=== PATIENT | female | born 1970 | race Caucasian/White ===

== ENCOUNTER → 2017-11-12 13:50 | Outpatient (CLI) | payer OTHER, SELFPAY ==
[2017-11-12 16:46] LABS: Absolute Lymphocyte Count 2.61 X10^3/ul (0.83-4.51); Absolute Neutrophil Count 4.8 X10^3/uL (2.0-7.7); Basophil# 0.03 X10^3/uL; Basophil% 0.4 % (0-1); Eosinophil# 0.09 X10^3/uL; Eosinophils% 1.1 % (0-5); Hematocrit 38.7 % (37-47); Lymphocyte # 2.61 X10^3/ul (4.0); Lymphocyte % 31.5 % (19-41); Mean Corpuscular Hgb 25.3 pg (27.0-32.0); Mean Corpuscular Volume 81.5 fL (81-99); Mean Platelet Vol. 10.6 fl (6.2-12.0); Monocyte# 0.71 X10^3/uL; Monocyte% 8.6 % (0-10); Neutrophil # 4.84 X10^3/uL (2.7-7.7); Neutrophil % 58.3 % (47-70); Platelet Count 253 K/mm3 (150-450); RBC Distribution Width CV 16.8 % (11.6-14.6); RBC Distribution Width SD 50.6 fl (35.1-43.9); Red Blood Count 4.75 M/mm3 (4.2-5.4); White Blood Count 8.3 K/mm3 (4.4-11.0)
[2017-11-12 16:50] LABS: POSITIVE COUNT NO; POSITIVE DIFFERENTIAL NO; POSITIVE MORPHOLOGY NO
[2017-11-12 17:22] LABS: ALB/GLOB Ratio 1.1 RATIO (0.9-2.4); AST(SGOT) 18 U/L (15-37); Alanine Aminotransfer ALT/SGPT 20 U/L (13-56); Albumin, Serum 3.7 g/dL (3.2-5.0); Alkaline Phosphatase 66 U/L (45-117); Anion Gap 10 (5-15); BUN 9 mg/dL (7-18); Calcium,Total 8.7 mg/dL (8.5-10.1); Chloride 106 mmol/L (98-107); Creatinine, Serum 0.69 mg/dL (0.55-1.02); EST Glomerular Filtration Rate 98 mL/min (>60); Est Glom Filt Rate - Afr Amer 118 mL/min (>60); Globulin 3.4 g/dL (2.2-4.2); Glucose 76 mg/dL (74-106); Potassium 3.8 mmol/L (3.5-5.1); Protein, Total 7.1 g/dL (6.4-8.2); Sodium Level 141 mmol/L (136-145); T4 Free Direct 1.15 ng/dL (0.76-1.46); Thyroid Stim Hormone (TSH) 1.85 uIU/mL (0.358-3.74)
== END ==
LOC: LAB 13:54
PROVIDERS: Family Provider Internal Medicine; PCP Internal Medicine; Visit Provider Internal Medicine
DX: K59.09 Other constipation (principal)
CPT/HCPCS: 36415; 80053; 84439; 84443; 85025

== ENCOUNTER → 2017-11-15 16:06 | Outpatient (CLI) | payer OTHER, SELFPAY ==
[2017-11-15 17:03] LABS: Ferritin 5 ng/mL (8-252); Iron 17 ug/dL (50-170); Iron Binding Capacity,Total 402 ug/dL (250-450)
== END ==
LOC: LAB 16:09
PROVIDERS: Family Provider Internal Medicine; PCP Internal Medicine; Visit Provider Internal Medicine
DX: E61.1 Iron deficiency (principal)
CPT/HCPCS: 36415; 82728; 83540; 83550

== ENCOUNTER → 2018-03-20 14:31 | Outpatient (CLI) | payer OTHER, SELFPAY ==
[2018-03-20 11:06] VITALS: BMI 19.9
== END ==
PROVIDERS: Family Provider Internal Medicine; PCP Internal Medicine; Referring Provider Physician Assistant; Visit Provider Physician Assistant
DX: J02.9 Acute pharyngitis, unspecified (principal)
CPT/HCPCS: 87081

== ENCOUNTER 2018-04-13 00:38 | Emergency (ER) | payer OTHER, SELFPAY ==
[2018-03-20 11:06] VITALS: BMI 19.9
[2018-04-13 00:40] VITALS: BP 130/82; PULSE 84; RESP 16; TEMP 36.7; O2SAT 98; BMI 21.4
--- NOTE | 2018-04-13 00:50 | RAD_ITS ---
HISTORY: RIGHT 1ST DIGIT PAIN AFTER HITTING IT ON SOMETHING. COMPARISON: None FINDINGS: XR right forefoot 3 views Subtle, nondisplaced, intra-articular fracture of the base of the distal phalanx, right great toe. The fracture appears mildly comminuted with a Y-shape. No dislocation. The remaining visualized bones appear intact. Joint spaces are preserved. No radiopaque foreign body. RAD/Toe(s) Min 2 Views IMPRESSION: Nondisplaced, intra-articular, mildly comminuted fracture of the distal phalanx, right great toe. at 0114 Reported and signed by: Bossman Griffin MD Electronically Signed: Bossman Griffin, at 1:13 EST Tel , Service support ,
--- NOTE | 2018-04-13 01:12 | ED.VISSUMM ---
- ER Visit Summary Date of Service: 04/13/18 Chief Complaint: I think I broke my toe History of Present Illness: The patient is a 47 F who presents with a toe injury. She tripped and fell about 6 hours before presentation and bent her right first toe and has been having pain since that time. She states it causes pain to shoot up towards her ankle but no other injuries. She is able to ambulate but it is painful to bear weight on the toe. Physical Examination: Afebrile vitals unremarkable Patient resting comfortably no distress Patient has tenderness and bruising of the right great toe she has brisk capillary refill normal sensation light touch she has no foot ankle or lower leg tenderness Test Results: Toe x-ray on my review does appear to show a fracture of the proximal portion of the distal phalanx. Emergency Department Course and Treatment: Patient was instructed on supportive care including rest ice elevation and anti-inflammatory use. Her toes were thom taped and she was given a postoperative shoe and discharged home. Treatment Plan: [] Disposition: Discharge Impression: Right great toe distal phalanx fracture This note was generated with [employer] dictation software. It may contain incorrect words, spelling, and punctuation that were not noted in review of the chart prior to signing ED Disposition - Plan for ED Patient: Chief Complaint: Lower Extremity Injury Referrals: Nighat Bailey MD [Primary Care Provider] -
--- NOTE | 2018-04-13 01:14 | ED.DEP ---
ED Disposition - Plan for ED Patient: Chief Complaint: Lower Extremity Injury Instructions: ED Fx Toe Closed Referrals: Nighat Bailey MD [Primary Care Provider] -
[2018-04-13 01:25] VITALS: PULSE 82; RESP 16; O2SAT 97
== END 2018-04-13 01:25 | disposition home or self-care (01) ==
PROVIDERS: Emergency Provider Emergency Medicine; Family Provider Internal Medicine; PCP Internal Medicine
DX: S92.424A Nondisplaced fracture of distal phalanx of right great toe, initial encounter for closed fracture (principal); W01.0XXA Fall on same level from slipping, tripping and stumbling without subsequent striking against object, initial encounter; Y93.9 Activity, unspecified; Y92.9 Unspecified place or not applicable; Y99.9 Unspecified external cause status; Z72.0 Tobacco use; Z79.899 Other long term (current) drug therapy
CPT/HCPCS: 73660; 99283